=== PATIENT | female | born 1985 | race Caucasian/White ===

== ENCOUNTER 2018-01-30 23:18 | Emergency (ER) | payer OTHER ==
[~2018-01-30] VITALS: Ht 170.2 cm; Wt 59.0 kg
[~2018-01-30 23:18] MED LIST: Acetaminophen/Cod #3 Tablet PO; CODE1TAB37 PO; NAPR500T14 PO
[2018-01-30] MEDS ORDERED: ADVIL100 M1 (23:43)
[2018-01-31] MEDS ORDERED: DICLOFENAC POTA50 MG PO (01:47)
== END 2018-01-31 01:55 | disposition home or self-care (01) ==
LOC: ER 23:18
DX: S90.112A Contusion of left great toe without damage to nail, initial encounter (principal); W22.8XXA Striking against or struck by other objects, initial encounter; Y93.89 Activity, other specified; Y92.89 Other specified places as the place of occurrence of the external cause; Y99.8 Other external cause status

== ENCOUNTER 2020-07-28 10:47 | Outpatient (CLI) | payer OTHER ==
[~2020-07-28 10:47] MED LIST changes: +ADVIL100 M1; +DICLOFENAC POTA50 MG PO
== END 2020-07-28 10:48 | disposition home or self-care (01) ==
LOC: PPH VACUNA 10:47
DX: Z23 Encounter for immunization (principal)